=== PATIENT | female | born 2000 | race Caucasian/White ===

== ENCOUNTER 2022-04-05 17:47 | Emergency (ER) | payer OTHER ==
[~2022-04-05] VITALS: Ht 157.5 cm; Wt 65.8 kg
[2022-04-05 17:49] VITALS: BP 116/76
--- NOTE | 2022-04-05 18:02 | NUR ---
PT AMBULATED TO ER BED 9 WITH A STEADY GAIT.
--- NOTE | 2022-04-05 18:05 | NUR ---
PT AMBULATED TO RESTROOM FOR UA COLLECTION.
--- NOTE | 2022-04-05 18:12 | NUR ---
21 Y/O FEMALE C/O ABDOMINAL PAIN 8/10 RADIATES TO RLQ AND UP TO LUQ X 4 DAYS. PT STATES +N, DENIES VOMITING. DENIES FEVER/CHILLS. DENIES PMH ALLERGIES: PCN
--- NOTE | 2022-04-05 18:17 | NUR ---
DR. COLLIER AT PT BEDSIDE FOR FURTHER EVALUATION.
--- NOTE | 2022-04-05 18:20 | NUR ---
DOUBLE CUTTER AT PT BEDSIDE.
[2022-04-05] MEDS ORDERED: ALUMINUM HYD/MAG/SIMETHICONE 30 ML UDC PO ONE (18:25)
[2022-04-05] MEDS ORDERED: ACETAMINOPHEN 325 MG TAB PO ONE (18:25)
[2022-04-05] MEDS ORDERED: ONDANSETRON 4 MG ODT PO ONE (18:25)
[2022-04-05] MEDS ORDERED: DICYCLOMINE 10 MG CAP PO ONE (18:25)
--- NOTE | 2022-04-05 18:31 | NUR ---
PT TAKEN TO CT VIA W/C.
[2022-04-05 18:33] LABS: BASOPHILS % (AUTO) 0.3 % (0.0-2.0); EOSINOPHILS # (AUTO) 0.1 K/uL (0-0.4); EOSINOPHILS % (AUTO) 1.2 % (0.0-4.0); HEMOGLOBIN 12.7 g/dL (12.0-16.0); LYMPHOCYTES # (AUTO) 2.4 K/uL (2.5-16.5); LYMPHOCYTES % (AUTO) 30.9 % (20.5-51.1); MEAN CORPUSCULAR HEMOGLOBIN 30 pg (27-31); MEAN CORPUSCULAR HGB CONC 34 g/dL (33-37); MONOCYTES # (AUTO) 0.6 K/uL (0.8-1.0); MONOCYTES % (AUTO) 7.5 % (1.7-9.3); NEUTROPHILS # (AUTO) 4.6 K/uL (1.8-7.7); NEUTROPHILS % (AUTO) 60.1 % (42.2-75.2); PLATELET COUNT (AUTO) 199 K/uL (140-450); RED BLOOD CELL COUNT(AUTO) 4.32 MIL/uL (4.20-5.40); RED CELL DISTRIBUTION WIDTH 13.7 % (11.6-13.7); WHITE BLOOD COUNT (AUTO) 7.7 K/uL (4.5-11.0)
--- NOTE | 2022-04-05 18:40 | NUR ---
PT TAKEN TO ER BED 9 VIA W/C.
[2022-04-05 18:49] LABS: ALBUMIN 4.1 g/dL (3.4-5.0); ANION GAP 8.8 (8-16); CARBON DIOXIDE 28.9 mmol/L (21-32); CREATININE 0.6 mg/dL (0.6-1.3); POTASSIUM 3.7 mmol/L (3.5-5.1); TOTAL BILIRUBIN 0.7 mg/dL (0.0-1.0)
--- NOTE | 2022-04-05 19:02 | NUR ---
US AT PT BEDSIDE.
--- NOTE | 2022-04-05 19:22 | NUR ---
GAVE REPORT TO ARMINDA GONZALES. TRANSFER OF CARE AT THIS TIME.
--- NOTE | 2022-04-05 19:37 | NUR ---
patient in semi-fowlers on the phone, AAOx4, GCS 15. Denies any pain. No signs of RR distress. Safety measures are in place and will continue to monitor patient.
[2022-04-05] MEDS ORDERED: ONDA-188 PO (20:08)
[2022-04-05] MEDS ORDERED: KETOROLAC 15 MG/ML VIAL IM ONE (20:15)
[2022-04-05 20:37] VITALS: BP 120/76
--- NOTE | 2022-04-05 20:37 | NUR ---
Patient discharged. Written and verbal after care instructions given and explained. Patient alert, oriented and verbalized understanding of instructions. Ambulatory with steady gait. All questions addressed prior to discharge. ID band removed. Patient advised to follow up with PMD. Rx of Zofran ODT given. Patient educated on indication of medication including possible reaction and side effects. Opportunity to ask questions provided and answered.
== END 2022-04-05 20:37 | disposition home or self-care (01) ==
LOC: MED 17:47
DX: R10.31 Right lower quadrant pain (principal); Z90.49 Acquired absence of other specified parts of digestive tract; Z88.0 Allergy status to penicillin
CPT/HCPCS: 36415; 74176; 76856; 80053; 81002; 81025; 83690; 85025; 96372; 99284; J1885; Q0092; Q0162

== ENCOUNTER 2022-06-03 15:06 | Emergency (ER) | payer OTHER ==
[~2022-06-03] VITALS: Ht 157.5 cm; Wt 63.5 kg
[~2022-06-03 15:06] MED LIST: ONDA-188 PO
[2022-06-03 15:13] VITALS: BP 125/82
--- NOTE | 2022-06-03 15:55 | NUR ---
21/F PRESENTS TO ED WITH C/O DYSURIA, HEMATURIA, NAUSEA AND FLANK PAIN AND TENDERNESS SINCE YESTERDAY. PATIENT REPORTS BEING SEEN AT URGENT CARE YESTERDAY FOR SAME SYMPTOMS, STATES SHE WAS DX WITH UTI AND GIVEN RX OF ABX. PATIENT REPORTS TAKING FIRST DOSE TODAY BUT STATES SHE FEELS SYMPTOMS ARE WORSENING AND REPORTS HEMATURIA TODAY. PATIENT C/O 7/10 BURNING PAIN UPON URINATION WELL FLANK PAIN THAT IS TENDER TO TOUCH. PATIENT DENIES TAKING MEDS FOR SYMPTOMS. DENIES FEVERS, CHILLS, VOMITING, DIARRHEA
[2022-06-03 15:58] LABS: BILIRUBIN,URINE 2+ (NEGATIVE); BLOOD, URINE 1+ (NEGATIVE); LEUKOCYTE ESTERASE ,URINE 2+ (NEGATIVE); NITRITE, URINE POSITIVE (NEGATIVE); UGLUCOSE TRACE (NEGATIVE)
[2022-06-03] MEDS ORDERED: KETOROLAC 30 MG/ML VIAL IM ONE (16:00)
[2022-06-03] MEDS ORDERED: ONDANSETRON 4 MG ODT PO ONE (16:00)
[2022-06-03 16:17] LABS: APPEARANCE,URINE HAZY (CLEAR); COLOR,URINE ORANGE (YELLOW)
[2022-06-03 16:18] LABS: WBC,URINE 80-100 /HPF (0-5)
[2022-06-03] MEDS ORDERED: NACL 0.9% 1,000 ML IV ONE (16:25)
[2022-06-03 16:39] LABS: BASOPHILS % (AUTO) 0.3 % (0.0-2.0); EOSINOPHILS % (AUTO) 0.1 % (0.0-4.0); HEMATOCRIT 38.2 % (36-48); HEMOGLOBIN 12.7 g/dL (12.0-16.0); LYMPHOCYTES # (AUTO) 0.9 K/uL (2.5-16.5); LYMPHOCYTES % (AUTO) 6.1 % (20.5-51.1); MEAN CORPUSCULAR HEMOGLOBIN 29 pg (27-31); MEAN CORPUSCULAR HGB CONC 33 g/dL (33-37); MEAN CORPUSCULAR VOLUME 87.7 fL (80-94); MONOCYTES # (AUTO) 0.6 K/uL (0.8-1.0); MONOCYTES % (AUTO) 4.4 % (1.7-9.3); NEUTROPHILS # (AUTO) 12.5 K/uL (1.8-7.7); NEUTROPHILS % (AUTO) 89.1 % (42.2-75.2); PLATELET COUNT (AUTO) 210 K/uL (140-450); RED BLOOD CELL COUNT(AUTO) 4.36 MIL/uL (4.20-5.40); RED CELL DISTRIBUTION WIDTH 13.2 % (11.6-13.7); WHITE BLOOD COUNT (AUTO) 14.1 K/uL (4.5-11.0)
[2022-06-03 16:53] LABS: ALBUMIN 4.4 g/dL (3.4-5.0); ANION GAP 14.5 (8-16); CARBON DIOXIDE 26.5 mmol/L (21-32); CREATININE 1.1 mg/dL (0.6-1.3); TOTAL BILIRUBIN 0.5 mg/dL (0.0-1.0)
[2022-06-03] MEDS ORDERED: ONDA-188 SL (17:27)
[2022-06-03] MEDS ORDERED: cefTRIAXone 1,000 MG VIAL ONE (17:27)
[2022-06-03] MEDS ORDERED: IBUP-2213 PO (17:27)
[2022-06-03] MEDS ORDERED: SULF-59 PO (17:27)
--- NOTE | 2022-06-03 17:45 | NUR ---
PATIENT REPORTS RELIEF OF PAIN AND NAUSEA AT THIS TIME.
--- NOTE | 2022-06-03 18:36 | NUR ---
IV removed, catheter intact and site benign. Applied folded 4x4 gauze and tape to stop bleeding.
[2022-06-03 18:37] VITALS: BP 126/76
--- NOTE | 2022-06-03 18:37 | NUR ---
Patient discharged with v/s stable. Written and verbal after care instructions ABOUT DEHYDRATION AND PYELONEPHRITIS given and explained. Patient alert, oriented and verbalized understanding of instructions. Ambulatory with steady gait. All questions addressed prior to discharge. ID band removed. Patient advised to follow up with PMD. Rx of ZOFRAN, BACTRIM AND IBUPROFEN given. Patient educated on indication of medication including possible reaction and side effects. Opportunity to ask questions provided and answered.
== END 2022-06-03 18:37 | disposition home or self-care (01) ==
LOC: MED 15:06
DX: N10 Acute pyelonephritis (principal); Z90.49 Acquired absence of other specified parts of digestive tract; Z79.899 Other long term (current) drug therapy; Z88.0 Allergy status to penicillin
CPT/HCPCS: 36415; 80053; 81001; 81025; 83605; 85025; 87086; 96361; 96365; 96372; 99284; J0696; J1885; J7030; Q0162

== ENCOUNTER 2022-07-13 15:05 | Emergency (ER) | payer OTHER ==
[~2022-07-13] VITALS: Ht 157.5 cm; Wt 64.9 kg
[~2022-07-13 15:05] MED LIST changes: +IBUP-2213 PO; +ONDA-188 SL; +SULF-59 PO
[2022-07-13 15:16] VITALS: BP 126/86
--- NOTE | 2022-07-13 18:53 | NUR ---
21 Y/O FEMALE BIB SELF C/O LOW BACK PAIN, DAILY AND NAUSEA AND CHILLS X2DAYS. STATES THAT SHE WAS SEEN HERE 1M AGO FOR PYELONEPHRITIS. pmh: kidney infection allergy: penicillin (swelling) med: denies
[2022-07-13 19:11] LABS: BILIRUBIN,URINE NEGATIVE (NEGATIVE); BLOOD, URINE NEGATIVE (NEGATIVE); COLOR,URINE YELLOW (YELLOW); LEUKOCYTE ESTERASE ,URINE TRACE (NEGATIVE); NITRITE, URINE NEGATIVE (NEGATIVE); UGLUCOSE NEGATIVE (NEGATIVE)
[2022-07-13 19:15] LABS: APPEARANCE,URINE HAZY (CLEAR)
--- NOTE | 2022-07-13 19:16 | NUR ---
Patient taken to bed 07.
[2022-07-13 19:33] LABS: RBC,URINE NONE SEEN /HPF (0-5)
[2022-07-13] MEDS ORDERED: NITR100C7 PO (19:39)
[2022-07-13 20:33] VITALS: BP 118/86
== END 2022-07-13 20:33 | disposition home or self-care (01) ==
LOC: MED 15:05
DX: N39.0 Urinary tract infection, site not specified (principal); R11.0 Nausea; M54.9 Dorsalgia, unspecified
CPT/HCPCS: 81001; 81025; 87086; 99283

== ENCOUNTER 2022-12-20 22:51 | Emergency (ER) | payer OTHER ==
[~2022-12-20] VITALS: Ht 157.5 cm; Wt 66.2 kg
[~2022-12-20 22:51] MED LIST changes: +NITR100C7 PO
[2022-12-20 23:11] VITALS: BP 122/72
--- NOTE | 2022-12-20 23:30 | NUR ---
pt to bed #2
[2022-12-20] MEDS ORDERED: KETOROLAC 30 MG/ML VIAL IVP ONE (23:50)
[2022-12-20] MEDS ORDERED: ONDANSETRON 4 MG/2 ML VIAL IVP ONE (23:50)
[2022-12-20] MEDS ORDERED: NACL 0.9% 1,000 ML IV ONE (23:50)
--- NOTE | 2022-12-21 00:10 | NUR ---
22yo F here for cough x body aches x 2 days. Pt c cough and congestion, sore throat. Admits to 8/10 lower back pain and body aches. Denies dysuria or hematuria. Has ronchi to bilat lung schroeder. Afebrile. VS stable. No distress.
[2022-12-21 00:14] LABS: APPEARANCE,URINE SL CLOUDY (CLEAR); BILIRUBIN,URINE NEGATIVE (NEGATIVE); BLOOD, URINE TRACE-I (NEGATIVE); COLOR,URINE YELLOW (YELLOW); LEUKOCYTE ESTERASE ,URINE NEGATIVE (NEGATIVE); NITRITE, URINE NEGATIVE (NEGATIVE); UGLUCOSE NEGATIVE (NEGATIVE)
[2022-12-21 00:26] LABS: RBC,URINE 0-5 /HPF (0-5); WBC,URINE 0-5 /HPF (0-5)
[2022-12-21] MEDS ORDERED: IBUP-2213 PO (00:50)
[2022-12-21] MEDS ORDERED: GUAI1TBM PO (00:50)
[2022-12-21] MEDS ORDERED: ALBU0.0912 IH (00:51)
[2022-12-21 00:58] VITALS: BP 112/62
--- NOTE | 2022-12-21 00:58 | NUR ---
Patient discharged with v/s stable. Written and verbal after care instructions given and explained. Patient verbalized understanding. Ambulatory with steady gait. All questions addressed prior to discharge. Advised to follow up with PMD.
[2022-12-23] MEDS ORDERED: AZIT250T4 PO (21:00)
--- NOTE | 2022-12-25 07:52 | NUR ---
LATE ENTRY -- CONFIRMED WITH NURSE, NS INFUSION END TIME IS 4912/21/22
== END 2022-12-21 00:58 | disposition home or self-care (01) ==
LOC: MED 22:51
DX: J06.9 Acute upper respiratory infection, unspecified (principal); Z20.822 Contact with and (suspected) exposure to COVID-19; B97.89 Other viral agents as the cause of diseases classified elsewhere; R03.0 Elevated blood-pressure reading, without diagnosis of hypertension; Z88.0 Allergy status to penicillin; Z79.899 Other long term (current) drug therapy
CPT/HCPCS: 81001; 81025; 87081; 87086; 87426; 87804; 96361; 96374; 96375; 99284; J1885; J2405; J7030

== ENCOUNTER 2023-03-25 23:35 | Emergency (ER) | payer OTHER ==
[~2023-03-25] VITALS: Ht 157.5 cm; Wt 65.8 kg
[~2023-03-25 23:35] MED LIST changes: +ALBU0.0912 IH; +AZIT250T4 PO; +GUAI1TBM PO
[2023-03-26 00:02] VITALS: BP 127/77
--- NOTE | 2023-03-26 00:09 | NUR ---
TO BED 2 FOLLOWING TRIAGE AND AFTER OBTAINING UA
--- NOTE | 2023-03-26 00:18 | NUR ---
22 YO F BIB SELF WITH C/C OF 7/10 LEFT LOWER ABD PAIN RAD TO LEFT FLANK X3DAYS. PT REPORTS BURINING URINATION, INCREASED FREQUENCY AND URGENCY. PT STATES SOMETIMES WHEN SHE URINATES IT IS A VERY SMALL AMOUNT. REPORTS NAUSEA AND DIZZINES. DENIES HX RX ALLERGY:PCN
[2023-03-26 00:32] LABS: APPEARANCE,URINE SL CLOUDY (CLEAR); BILIRUBIN,URINE NEGATIVE (NEGATIVE); BLOOD, URINE 1+ (NEGATIVE); COLOR,URINE YELLOW (YELLOW); LEUKOCYTE ESTERASE ,URINE 1+ (NEGATIVE); NITRITE, URINE NEGATIVE (NEGATIVE); UGLUCOSE NEGATIVE (NEGATIVE)
[2023-03-26 00:44] LABS: OTHER CRYSTALS,URINE SODIUM URATES 1+ /HPF (None Seen)
--- NOTE | 2023-03-26 00:47 | NUR ---
Dr. Tripathi examining patient.
[2023-03-26] MEDS ORDERED: cefTRIAXone 1,000 MG in LIDOCAINE MPF 1% 2.1 ML IM ONE (00:50)
[2023-03-26] MEDS ORDERED: KETOROLAC 60 MG/2 ML VIAL IM ONE (00:50)
[2023-03-26] MEDS ORDERED: cefTRIAXone 1,000 MG VIAL ONE (00:55)
[2023-03-26] MEDS ORDERED: LIDOCAINE MPF 1% 5 ML ONE (00:55)
[2023-03-26] MEDS ORDERED: NITR100C7 PO (01:00)
[2023-03-26] MEDS ORDERED: PHEN-1877 PO (01:00)
[2023-03-26 01:25] VITALS: BP 122/75
--- NOTE | 2023-03-26 01:25 | NUR ---
Patient discharged with v/s stable. Written and verbal after care instructions given and explained by Dr. Tripathi. Patient alert, oriented and verbalized understanding of instructions. Ambulatory with steady gait. All questions addressed prior to discharge. ID band removed. Patient advised to follow up with PMD. Rx of Pyridium and Macrobid given. Patient educated on indication of medication including possible reaction and side effects. Opportunity to ask questions provided and answered.
== END 2023-03-26 01:25 | disposition home or self-care (01) ==
LOC: MED 23:35
DX: N39.0 Urinary tract infection, site not specified (principal); Z79.899 Other long term (current) drug therapy; Z90.49 Acquired absence of other specified parts of digestive tract
CPT/HCPCS: 81001; 81025; 87086; 96372; 99284; J0696; J1885; J2001

== ENCOUNTER 2023-09-18 01:31 | Emergency (ER) | payer OTHER ==
[~2023-09-18] VITALS: Ht 157.5 cm; Wt 68.0 kg
[~2023-09-18 01:31] MED LIST changes: +PHEN-1877 PO
[2023-09-18 01:35] VITALS: BP 131/77; PULSE 91; RESP 17; TEMP 98.6; O2SAT 98
== END 2023-09-18 02:15 | disposition home or self-care (01) ==
LOC: MED 01:31
DX: R07.89 Other chest pain (principal); F41.9 Anxiety disorder, unspecified; Z88.0 Allergy status to penicillin; Z79.899 Other long term (current) drug therapy
CPT/HCPCS: 93005; 99283